=== PATIENT | male | born 1975 | race Caucasian/White ===

== ENCOUNTER 2016-09-18 08:00 | Outpatient (CLI) | payer OTHER | END 2016-09-18 08:01 | disposition home or self-care (01) | DX: N20.0 Calculus of kidney (principal) ==

== ENCOUNTER 2016-11-16 13:38 | Outpatient (CLI) | payer OTHER | END 2016-11-16 13:39 | disposition home or self-care (01) | DX: M25.531 Pain in right wrist (principal) ==

== ENCOUNTER 2017-07-27 09:56 | Outpatient (CLI) | payer OTHER ==
[2017-07-27 17:41] LABS: BASOPHILS % (AUTO) 0.5 %; EOSINOPHILS # (AUTO) 0.1 10^3/uL (0.0-0.7); EOSINOPHILS % (AUTO) 1.6 %; HCT - HEMATOCRIT 44.4 % (42.0-52.0); HGB - HEMOGLOBIN 14.9 g/dL (14.0-18.0); LYMPHOCYTES # (AUTO) 1.8 10^3/uL (1.5-3.5); LYMPHOCYTES % (AUTO) 27.7 %; MEAN CORPUSCULAR HEMOGLOBIN 30.4 pg (27.0-31.0); MEAN CORPUSCULAR HGB CONC 33.5 g/dL (32.0-36.0); MEAN CORPUSCULAR VOLUME 90.7 fL (80.0-94.0); MEAN PLATELET VOLUME 7.9 fL (7.4-11.4); MONOCYTES # (AUTO) 0.6 10^3/uL (0.0-1.0); MONOCYTES % (AUTO) 8.8 %; NEUTROPHILS # (AUTO) 4.1 10^3/uL (1.5-6.6); NEUTROPHILS % (AUTO) 61.4 %; RED CELL DISTRIBUTION WIDTH 12.6 % (12.0-15.0); UNCORRECTED WHITE BLOOD COUNT 6.6 x10^3/uL; WHITE BLOOD COUNT 6.6 x10^3/uL (4.8-10.8)
[2017-07-27 17:56] LABS: ALBUMIN/GLOBULIN RATIO 1.2 (1.0-2.2); BILIRUBIN,TOTAL 0.6 mg/dL (0.2-1.0); BUN - BLOOD UREA NITROGEN 15 mg/dL (6-20); CALCIUM 9.8 mg/dL (8.5-10.3); CARBON DIOXIDE - CO2 25 mmol/L (21-32); CHLORIDE 101 mmol/L (101-111); CREATININE 0.7 mg/dL (0.6-1.2); GFR - MDRD 124 (>89); GLUCOSE 94 mg/dL (70-100); POTASSIUM 4.2 mmol/L (3.5-5.0); SODIUM 135 mmol/L (135-145)
== END 2017-07-27 09:57 | disposition home or self-care (01) ==
LOC: LAB.F 09:56
PROVIDERS: ATTEND Physician Assistant Medical
DX: Z00.00 Encounter for general adult medical examination without abnormal findings (principal); E55.9 Vitamin D deficiency, unspecified
CPT/HCPCS: 36415; 80053; 82306; 84443; 85025

== ENCOUNTER 2017-11-27 08:59 | Outpatient (CLI) | payer OTHER ==
[2017-11-27 17:45] LABS: CHOL/HDL RATIO 6.1 (<5.0); CHOLESTEROL 289 mg/dL; HDL CHOLESTEROL 47 mg/dL; LDL CHOLESTEROL,CALCULATED 200 mg/dL; LDL/HDL RATIO 4.3 (<3.6); VLDL CHOLESTEROL 42 mg/dL
== END 2017-11-27 09:00 | disposition home or self-care (01) ==
LOC: LAB.F 08:59
PROVIDERS: ATTEND Physician Assistant Medical
DX: Z00.00 Encounter for general adult medical examination without abnormal findings (principal); Z13.89 Encounter for screening for other disorder; E55.9 Vitamin D deficiency, unspecified
CPT/HCPCS: 36415; 80061; 82306; 83721

== ENCOUNTER 2019-04-15 15:44 | Inpatient (IN) | payer OTHER ==
[~2019-04-15 15:44] MED LIST: GLYCOPYRROLATE 1 MG/5 ML VIAL IVP ONE; LIDOCAINE-MPF 2% 5 ML VIAL IM ONE; MIDAZOLAM 2 MG/2 ML VIAL IVP ONE; ONDANSETRON 4 MG/2 ML VIAL IVP ONE; PROPOFOL 200 MG/20 ML VIAL IVP ONE; ROCURONIUM 50 MG/5 ML VIAL IVP ONE; fentaNYL 100 MCG/2 ML VIAL IVP ONE
--- NOTE | 2019-04-15 15:59 | ED Physician Documentation ---
History of Present Illness - Stated complaint Stated Complaint: TOOTH PX - Chief complaint Chief Complaint: Heent - Additonal information Additional information: This is a 43-year-old male with a history of hypertension, hyperlipidemia who pr esents with left neck swelling. Patient developed an infected back left molar, he then was started on penicillin last Sunday. He had the tooth removed at the dentist yesterday and then was started on clindamycin yesterday. Overnight he began having some increased swelling of his face, which has progressed today. Now he is having trouble swallowing. He has been spitting his saliva. He denies difficulty breathing at this time. He denies fever, but he feels that he has moderate pain and pressure over his neck extending inferiorly in his neck. Review of Systems Constitutional: reports: Chills Eyes: denies: Loss of vision Throat: reports: Dental pain / toothache, Sore throat Cardiac: denies: Chest pain / pressure Respiratory: denies: Dyspnea GI: denies: Abdominal Pain : denies: Dysuria Skin: reports: Other (erythema of the neck) Musculoskeletal: reports: Neck pain Neurologic: denies: Generalized weakness Immunocompromised: denies: Immunocompromised PD PAST MEDICAL HISTORY - Past Surgical History Past Surgical History: Yes - Present Medications Home Medications: Ambulatory Orders Medication Instructions Recorded Confirmed RX: Lisinopril 10 mg PO DAILY 04/15/19 04/15/19 - Allergies Allergies/Adverse Reactions: Allergies Allergy/AdvReac Type Severity Reaction Status Date / Time levofloxacin Allergy Itching Verified 04/15/19 15:52 - Social History Does the pt smoke?: No Smoking Status: Never smoker Does the pt drink ETOH?: No Does the pt have substance abuse?: No - Immunizations Immunizations are current?: Yes PD ED PE NORMAL - Vitals Vital signs reviewed: Yes - General General: Alert and oriented X 3, Other (Obvious swelling of the Left mandibular region, patient appears somewhat uncomfortable) - HEENT HEENT: Other (Patient has moderate trismus, is able to open his mouth wide enough for me to see his back molar where he he had a tooth removed on the bottom left, there is no active purulent drainage from this region. He is induration and erythema and edema of his posterior mandibular region which extends inferiorly to the lateral submental area and also superiorly to the angle of the mandible. There are no open draining lesions visible. The region is diffusely tender. Patient has difficulty swallowing, he spit some of his secretions.) - Neck Neck: Supple, no meningeal sign - Cardiac Cardiac: Other (Tachycardiuc) - Respiratory Respiratory: Clear bilaterally - Abdomen Abdomen: Soft, Non tender, Non distended - Extremities Extremities: No deformity - Neuro Neuro: Alert and oriented X 3, bread icer 2-12 intact, No motor deficit, Other - Psych Psych: Normal mood, Normal affect Results - Vitals Vitals: Vital Signs - 24 hr 04/15/19 04/15/19 04/15/19 15:48 17:42 18:00 Temperature 36.8 C Heart Rate 119 H 109 H 114 H Respiratory 18 17 15 Rate Blood Pressure 141/85 H 137/73 H 128/74 O2 Saturation 98 96 97 04/15/19 04/15/19 04/15/19 18:22 18:52 19:31 Temperature Heart Rate 120 H 114 H 106 H Respiratory 18 16 19 Rate Blood Pressure 121/82 H 146/81 H 140/81 H O2 Saturation 98 98 99 Oxygen O2 Source Room air - Labs Labs: Laboratory Tests 04/15/19 04/15/19 04/15/19 16:23 16:23 16:23 WBC 15.9 H RBC 4.58 L Hgb 14.3 Hct 42.3 MCV 92.4 MCH 31.2 H MCHC 33.8 RDW 11.9 L Plt Count 350 MPV 9.3 Neut # (Auto) 13.7 H Lymph # (Auto) 0.8 L [place] # (Auto) 1.2 H Eos # (Auto) 0.0 Baso # (Auto) 0.0 Absolute Nucleated RBC 0.00 Nucleated RBC % 0.0 PT 15.1 H INR 1.3 H Sodium 135 Potassium 4.4 Chloride 95 L Carbon Dioxide 24 Anion Gap 16.0 H BUN 10 Creatinine 0.7 Estimated GFR (MDRD) 123 Glucose 110 H Lactic Acid Calcium 9.7 Total Bilirubin 0.9 AST 23 ALT 17 Alkaline Phosphatase 71 Total Protein 9.3 H Albumin 4.1 Globulin 5.2 H Albumin/Globulin Ratio 0.8 L Lipase 20 L 04/15/19 16:28 WBC RBC Hgb Hct MCV MCH MCHC RDW Plt Count MPV Neut # (Auto) Lymph # (Auto) [place] # (Auto) Eos # (Auto) Baso # (Auto) Absolute Nucleated RBC Nucleated RBC % PT INR Sodium Potassium Chloride Carbon Dioxide Anion Gap BUN Creatinine Estimated GFR (MDRD) Glucose Lactic Acid 0.7 Calcium Total Bilirubin AST ALT Alkaline Phosphatase Total Protein Albumin Globulin Albumin/Globulin Ratio Lipase - Rads (name of study) CT neck soft Radiology: Other (Abscess in the mandibular region as well as infection extending inferiorly, appears to be early Nehemias's angina) PD MEDICAL DECISION MAKING - ED course Complexity details: considered differential (Abscess, cellulitis, Nehemias's angina, Deep space infection, sepsis, respiratory compromise) ED course: This is a 43-year-old male presenting with swelling of the left side of his face/neck after a dental extraction yesterday. On arrival he is tachycardic, And uncomfortable appearing. He has some trismus, however he is breathing with out signs of upper airway Obstruction. He is spitting his saliva and does not appear to be managing his secretions very well. IV was inserted, labs drawn, patient placed on a monitor. Fluid bolus given. Blood cultures were drawn and patient was started on Zosyn and vancomycin. He was given 20 mg of dexamethasone IV. CT scan of the neck with contrast was obtained which shows a approximately 2 x 2 x 1.2 cm abscess of the left mandibular ramus, with extensive extension of cellulitis and soft tissue infection concerning for early Nehemias's angina. Patient was given morphine for pain control. Dr. Vargas of [facility] Was contacted, reviewed the CT, and came to bedside probably to evaluate patient. After discussion with the patient, patient was taken to the OR and admitted to the ICU afterwards for continued monitoring and antibiotic treatment. While in the ED he had no acute events, he continued to have tachycardia but his blood pressure was stable. Departure - Departure Disposition: [facility] DC/Xfer Clinical Impression: Mandibular abscess, Nehemias's angina Sepsis Qualifiers: Sepsis type: sepsis due to unspecified organism Sepsis acute organ dysfunction status: without acute organ dysfunction Qualified Code(s): A41.9 - Sepsis, unspecified organism Discharge Date/Time: 04/15/19 21:49
[2019-04-15] MEDS ORDERED: VANCOMYCIN INJ 2.5 GM in SODIUM CHLORIDE 0.9% 500 ML IV STA (16:10)
[2019-04-15] MEDS ORDERED: PIPERACILLIN/TAZOBACTAM 4.5 GM in SODIUM CHLORIDE 0.9% MINIBAG 100 ML IV STA (16:13)
[2019-04-15] MEDS ORDERED: SODIUM CHLORIDE 0.9% 1,000 ML IV ONE (16:15)
[2019-04-15 16:35] LABS: BASOPHILS % (AUTO) 0.3 %; EOSINOPHILS % (AUTO) 0.1 %; HGB - HEMOGLOBIN 14.3 g/dL (14.0-18.0); LYMPHOCYTES # (AUTO) 0.8 10^3/uL (1.5-3.5); LYMPHOCYTES % (AUTO) 5.2 %; MEAN CORPUSCULAR HEMOGLOBIN 31.2 pg (27.0-31.0); MEAN CORPUSCULAR HGB CONC 33.8 g/dL (32.0-36.0); MEAN CORPUSCULAR VOLUME 92.4 fL (80.0-94.0); MEAN PLATELET VOLUME 9.3 fL (7.4-11.4); MONOCYTES # (AUTO) 1.2 10^3/uL (0.0-1.0); MONOCYTES % (AUTO) 7.4 %; NEUTROPHILS # (AUTO) 13.7 10^3/uL (1.5-6.6); NEUTROPHILS % (AUTO) 86.2 %; PLT - PLATELET COUNT 350 10^3/uL (130-450); RED BLOOD COUNT 4.58 10^6/uL (4.70-6.10); RED CELL DISTRIBUTION WIDTH 11.9 % (12.0-15.0); WHITE BLOOD COUNT 15.9 x10^3/uL (4.8-10.8)
[2019-04-15 16:39] LABS: INR 1.3 (0.8-1.2); PT - PROTHROMBIN TIME 15.1 secs (9.9-12.6)
[2019-04-15] MEDS ORDERED: IOVERSOL 320 100 ML VIAL IVP ONE ×2 (16:40→17:14)
[2019-04-15 16:50] LABS: ALBUMIN 4.1 g/dL (3.2-5.5); ALBUMIN/GLOBULIN RATIO 0.8 (1.0-2.2); BILIRUBIN,TOTAL 0.9 mg/dL (0.2-1.0); CALCIUM 9.7 mg/dL (8.5-10.3); CREATININE 0.7 mg/dL (0.6-1.2); TOTAL PROTEIN 9.3 g/dL (6.7-8.2)
[2019-04-15] MEDS ORDERED: MORPHINE 2 MG/ML CARPUJECT IVP STA (17:15)
[2019-04-15] MEDS ORDERED: ONDANSETRON 4 MG/2 ML VIAL IVP STA (17:15)
[2019-04-15] MEDS ORDERED: DEXAMETHASONE 10 MG/ML VIAL IVP STA (17:27)
[2019-04-15] MEDS ORDERED: SODIUM CHLORIDE 0.9% 250 ML IV ONE (17:45)
[2019-04-15] MEDS ORDERED: VANCOMYCIN 1 GM VIAL ONE (17:45)
--- NOTE | 2019-04-15 17:57 | CT Report ---
Reason: Neck swelling after tooth removal Procedure Date: 04/15/2019 Accession Number: [id number] / [id number] Procedure: CT - SOFT TISSUE NECK W CPT Code: FULL RESULT: EXAM: CT SOFT TISSUE NECK WITH CONTRAST. EXAM DATE: 04/15/2019 05:13 PM. HISTORY: 43-year-old with recent tooth removal presenting with left neck swelling. Evaluate for neck pathology. COMPARISONS: None. TECHNIQUE: Routine soft tissue neck CT protocol. Reconstructions: Coronal and sagittal. IV contrast: 80 cc Optiray 320. In accordance with CT protocol optimization, one or more of the following dose reduction techniques were utilized for this exam: automated exposure control, adjustment of mA and/or KV based on patient size, or use of iterative reconstructive technique. FINDINGS: Dental amalgam beam hardening artifact technically limits evaluation of the oral cavity, oropharynx, and surrounding soft tissues. Visualized Intracranial Contents: Unremarkable. Orbits: Symmetric and unremarkable. Sinuses: Tiny right maxillary mucosal retention cyst versus polyp. Mastoid air cells and middle ear cavities appear clear. Oral cavity: There is edema and soft tissue stranding seen within the left floor of mouth. There is a rim-enhancing fluid collection seen along the lingual aspect of the left mandibular ramus that approximately measures 21 x 12 x 24 mm (CC by TR by AP). The rim-enhancing fluid collection appears to be associated with a empty socket of left mandibular molar. The right floor of mouth and muscles of the tongue appear normal. Pharynx: The mucosal and parapharyngeal spaces of the nasopharynx appeared normal. The tonsillar pillars of the oropharynx appeared normal. There is soft tissue stranding and edema seen within the parapharyngeal soft tissues of the left oropharynx. The epiglottis appears normal. There is mild thickening and enhancement of the left aryepiglottic fold with effacement of the left piriform sinus. Retropharyngeal soft tissues appear normal. The airway is patent. Larynx: Incidentally seen is a small right anterior laryngocele (series 3, image 99). Vocal cords are symmetric. The visualized trachea is unremarkable. Parotid and Submandibular Glands: Bilateral parotid glands appear normal. There is enlargement and heterogenous enhancement of the left submandibular gland. Lymph Nodes: There are small subcentimeter cervical lymph nodes seen greater on the left. Sample lymph nodes include: 1. Left level 2A lymph node measuring up to 11 mm in short axis dimension (series 3, image 72). Soft tissues: There is moderate volume soft tissue stranding and edema seen within the left submandibular space extending into the left tip printer space, left buccal space, and left lateral neck. There is thickening and questionable heterogenous enhancement of the left masseter muscle and left pterygoid muscles concerning for myositis. No definite mass lesion seen. Vascular Structures: Unremarkable. Thyroid Gland: Normal. Lung: The visualized lung apices are clear. Bones: No evidence of acute fracture or malalignment. There are mild degenerative changes. Other: None. IMPRESSION: 1. Dental amalgam beam hardening artifact technically limits evaluation of the oral cavity, oropharynx, and surrounding soft tissues. 2. There is a rim-enhancing fluid collection seen along the lingual aspect of the left mandibular ramus that approximately measures 21 x 12 x 24 mm (cc by TR by AP) concerning for immature abscess formation. The rim-enhancing fluid collection appears to be associated with a empty socket of last left mandibular molar. 3. CT findings concerning for moderate cellulitis with inflammation extending into the left floor of mouth, left submandibular space, parapharyngeal soft tissues of the left oropharynx, left tip printer space, left buccal space, and left lateral neck. There are CT findings concerning for myositis of the left masseter muscle and left pterygoid muscles. No additional rim-enhancing fluid collection seen. Inflammation of the left floor of mouth is concerning for early Ludwigs angina. 4. Mild thickening and enhancement of the left aryepiglottic fold with effacement of the left piriform sinus concerning for potential left-sided supraglottitis. RADIA The call report notification system was initiated by Dr. Berto Stark at 05:36 PM on 04/15/2019. The above call report findings were discussed with Jose Jamison by Dr. Berto Stark at 05:39 PM on 04/15/2019.
[2019-04-15] MEDS ORDERED: VANCOMYCIN INJ 1 GM, VANCOMYCIN INJ 250 MG in SODIUM CHLORIDE 0.9% 250 ML IV SCH (18:00)
[2019-04-15] MEDS ORDERED: VANCOMYCIN INJ 2.5 GM in SODIUM CHLORIDE 0.9% 500 ML IV ONE (18:00)
--- NOTE | 2019-04-15 19:28 | CONSULTATION NOTE ---
Referring Provider Name of Referring Provider:: Jose Jamison Consult Date: 04/15/19 Chief Complaint - Chief Complaint Chief Complaint: Facial pain and swelling History of Present Illness - Admitted From Admitted From:: ER - History Obtained From Records Reviewed: Yes History obtained from: Patient - History of Present Illness HPI Comment/Other: Shaquille is a 43 yo M who came in for left neck swelling, pain and difficulty swallowing. A week ago he began having swelling of the left neck related to tooth #18. The swelling gradually increased, even though he was on amoxicillin and then clindamycin. He had the tooth removed by Dr. Salmeron yesterday but he has continued to swell. He endorses severe difficulty swallowing and globus, as well as trismus. He denies any difficulty breathing. Denies fever, chills, nausea, and vomitting. A CT soft tissue neck w/ contrast was taken, demonstrating a perimandibular abscess of the left tunnel kiln repairer space, and [facility]FS was consulted for evaluation and management of the patient. History - Past Medical History Cardiovascular: reports: Hypertension - Past Surgical History HEENT: reports: Other (Craniosynostosis surgery at 6 months) - Family & Social History Living arrangement: At home Living Situation: With spouse/s.o. - Substance History Use: Uses substance without health or social issues: NONE - POLST POLST Status: Full Code Meds/Allgy - Home Medications Home Medications: Ambulatory Orders Medication Instructions Recorded Confirmed Lisinopril 10 mg PO DAILY 04/15/19 04/15/19 - Allergies Allergies/Adverse Reactions: Allergies Allergy/AdvReac Type Severity Reaction Status Date / Time levofloxacin Allergy Itching Verified 04/15/19 15:52 Review of Systems - Constitutional Constitutional: reports: Other (A 14 point ROS was completed and found to be negative except as noted above in HPI) Exam - Vital Signs Reviewed Vital Signs: Yes Vital Signs: Vital Signs x48h Temp Pulse Resp BP Pulse Ox 04/15/19 18:52 114 H 16 146/81 H 98 04/15/19 18:22 120 H 18 121/82 H 98 04/15/19 18:00 114 H 15 128/74 97 04/15/19 17:42 109 H 17 137/73 H 96 04/15/19 15:48 36.8 C 119 H 18 141/85 H 98 - Physical Exam General Appearance: positive: No acute distress, Alert Eyes Bilateral: positive: PERRL, EOMI ENT: positive: Other (PHILIPPE 9mm. FOM s, nt, ne. Uvula could not be examined 2/2 trismus. Occlusion stable and repeatable. Recent extraction site #18 difficult to exam, but no bleeding or drainage. Significant intraoral swelling and facial swelling of the left buccal space and left submandibular space, beginning to cross the midline to the right side. The swelling is indurated.) Neck: positive: Other (As above, cellulitis and swelling of the left submandibular space extending inferiorly to the thyroid cartilage) Respiratory: positive: Chest non-tender, No respiratory distress Cardiovascular: positive: Regular rate & rhythm Peripheral Pulses: positive: 2+ Abdomen: positive: Non-tender, No distention Skin: positive: Other (Clean and dry, with erythema over the swelling of the left neck) Extremities: positive: Non-tender, Full ROM Neurologic/Psychiatric: positive: Oriented x3, CN's nml (2-12) Conclusion/Plan - Diagnosis Diagnosis: left tunnel kiln repairer space abscess 2/2 necrotic tooth #18 - Plan Plan: We anticipate extraoral incision and drainage of the left tunnel kiln repairer space in the [facility]. - 20 mg decadron to decrease airway edema - IV abx while in house. Unasyn 3g q6h. If unavailable, Pen G and Metronidazole. - There is significant narrowing of the airway 2/2 mass effect and edema. The patient may stay intubated after surgery, per anesthesia. - Home on Augmentin 875mg BID - - Lab Results Fish Bones: 04/15/19 16:23 04/15/19 16:23 - Diagnostic Imaging Results Diagnostic Imaging Results: positive: Other (There is a 4 cm abscess in the left tunnel kiln repairer space with the largest loculation medial to the mandible. The a bscess does not extend into the prevertebral space. The skin over the abscess is cellulitic. The supraglottic airway is narrowed and deviated about 1cm to the R.)
[2019-04-15] MEDS ORDERED: MORPHINE 2 MG/ML CARPUJECT IVP PRN (19:34)
[2019-04-15] MEDS ORDERED: LIDOCAINE MPF 2%-EPI 1:200000 20 ML VIAL ONE (19:43)
--- NOTE | 2019-04-15 21:17 | ANESTHESIA ---
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 2/2 necrotic tooth #18 - Procedure I and D oral abscess Vital Signs: Temp Pulse Resp BP Pulse Ox 36.8 C 106 H 19 140/81 H 99 04/15/19 15:48 04/15/19 19:31 04/15/19 19:31 04/15/19 19:31 04/15/19 19:31 Height 5 ft 8 in Weight (kg) 95.254 kg Body Mass Index 31.9 - NPO Other ()atmeal at 0900, water since 1500) - Lab Results Current Lab Results: Laboratory Tests 04/15/19 16:28: Lactic Acid 0.7 04/15/19 16:23: Sodium 135, Potassium 4.4, Chloride 95 L, Carbon Dioxide 24, Anion Gap 16.0 H, BUN 10, Creatinine 0.7, Estimated GFR (MDRD) 123, Glucose 110 H, Calcium 9.7, Total Bilirubin 0.9, AST 23, ALT 17, Alkaline Phosphatase 71, Total Protein 9.3 H, Albumin 4.1, Globulin 5.2 H, Albumin/Globulin Ratio 0.8 L, Lipase 20 L 04/15/19 16:23: PT 15.1 H, INR 1.3 H 04/15/19 16:23: WBC 15.9 H, RBC 4.58 L, Hgb 14.3, Hct 42.3, MCV 92.4, MCH 31.2 H , MCHC 33.8, RDW 11.9 L, Plt Count 350, MPV 9.3, Neut # (Auto) 13.7 H, Lymph # (Auto) 0.8 L, [place] # (Auto) 1.2 H, Eos # (Auto) 0.0, Baso # (Auto) 0.0, Absolute Nucleated RBC 0.00, Nucleated RBC % 0.0 Fish Bones: 04/15/19 16:23 04/15/19 16:23 Home Medications and Allergies Home Medications: Ambulatory Orders Lisinopril 10 mg PO DAILY 04/15/19 Active Medications Lactated Ringer's (Lr) 1,000 mls @ 100 mls/hr IV .Q10H YESSICA Ampicillin Sodium/Sulbactam (Sodium 3 gm/ Sodium Chloride) 100 mls @ 200 mls/hr IV Q6H YESSICA Morphine Sulfate (Morphine (Carpuject)) 2 mg IVP Q2HR PRN PRN Reason: Pain 8 to 10 Sodium Chloride (Normal Saline Flush 0.9%) 10 ml IVP 0100,0900,1700 YESSICA Sodium Chloride (Normal Saline Flush 0.9%) 10 ml IVP PRN PRN PRN Reason: NEEDED PER PROVIDER ORDERS Lisinopril 10 mg PO DAILY 04/15/19 Allergies/Adverse Reactions: Allergies Allergy/AdvReac Type Severity Reaction Status Date / Time levofloxacin Allergy Itching Verified 04/15/19 15:52 Anes History & Medical History - Anesthetic History Anesthesia Complications: reports: No previous complications Family history of Anesthesia Complications: Denies Family history of Malignant Hyperthermia: Denies - Medical History Cardiovascular: reports: Hypertension Pulmonary: reports: None Urinary: reports: Kidney stones Neuro: reports: Other (Cranial stenosis) Musculoskeletal: reports: None Endocrine/Autoimmune: reports: None Blood Disorders: reports: None Skin: reports: None Smoking Status: Never smoker Psychosocial: reports: No issues indicated - Surgical History Eyes Ears Nose Throat (EENT): Other (Craniosynostosis surgery at 6 months) Urologic: Ureterolithotomy (stones) Neurologic: Craniotomy Exam General: Alert Dental: Other (Difficult to assess) Mouth Openin Fingerbreadth (FB) Neck Mobility: Reduced Mallampati classification: IV Thyromental Distance: 4-6 cm Respiratory: Lungs clear Cardiovascular: Regular rate Mental/Cognitive Status: Alert/Oriented X3 Cognitive Status: Within normal limits Plan Anesthesia Type: General Consent for Procedure(s) Verified and Reviewed: Yes Code Status: Attempt Resuscitation ASA classification: 3-Severe systemic disease Is this case an emergency?: Yes
[2019-04-15] MEDS ORDERED: LACTATED RINGERS 1,000 ML IV ONE ×4 (21:44→22:56)
[2019-04-15] MEDS: LACTATED RINGERS 1,000 ML IV SCH (22:59)
[2019-04-15] MEDS: PROPOFOL 1000 MG/100 ML 100 ML IV SCH (23:22)
[2019-04-15] MEDS: SODIUM CHLORIDE FLUSH 0.9% 10 ML SYRINGE IVP SCH ×2 (23:27→23:51)
[2019-04-15] MEDS ORDERED: MIDAZOLAM 2 MG/2 ML VIAL IVP ONE (23:34)
[2019-04-15] MEDS: AMPICILLIN/SULBACTAM 3 GM in SODIUM CHLORIDE 0.9% MINIBAG 100 ML IV SCH (23:59)
[2019-04-16] MEDS: fentaNYL 100 MCG/2 ML VIAL IVP PRN ×6 (00:19→14:53)
[2019-04-16] MEDS: DEXAMETHASONE 10 MG/ML VIAL IVP SCH ×3 (00:19→11:22)
[2019-04-16] MEDS: SODIUM CHLORIDE FLUSH 0.9% 10 ML SYRINGE IVP PRN ×8 (00:20→22:36)
[2019-04-16] MEDS ORDERED: MIDAZOLAM 2 MG/2 ML VIAL IVP ONE ×2 (01:57→09:20)
[2019-04-16] MEDS: MIDAZOLAM 2 MG/2 ML VIAL IVP PRN ×3 (02:08→06:51)
--- NOTE | 2019-04-16 02:20 | HISTORY & PHYSICAL EXAMINATION ---
Chief Complaint - Chief Complaint Chief Complaint: Neck swelling History of Present Illness - Admitted From Admitted From:: Home - History Obtained From Records Reviewed: Yes History obtained from: ER Physician, EMR Exam Limitations: Patient intubated - History of Present Illness HPI Comment/Other: This is a 43 year old male with a past medical history significant for hypertension who presented from home complaining of neck swelling. History is obtain from the ER physician and EMR as the patient is currently in the ICU post operatively. He reportedly had an infected tooth and was treated with antibiotics on an outpatient basis. He then had the tooth removed yesterday by his dentist and started on Clindamycin. He presented to the ER because he noticed increased swelling, difficulty swallowing and increased saliva pr oduction. In the ER, he underwent a CT of the neck which was concerning for a 2cm abscess near the left mandible with significant soft tissue edema concerning for nehemias's angina. Dr. Vargas, the oral surgeon evaluated the patient and took him to the OR for I&D of the abscess. Patient remained intubated postoperatively and so Medicine was asked to admit the patient to the ICU. History - Past Medical History Cardiovascular: reports: Hypertension Respiratory: reports: None Neuro: reports: Other (Cranial stenosis) Endocrine/Autoimmune: reports: None : reports: Kidney stones Musculoskeletal: reports: None Derm: reports: None - Past Surgical History Neuro: reports: Craniotomy HEENT: reports: Other (Craniosynostosis surgery at 6 months) - Family & Social History Family History Comment/Other: Unable to obtain family history as patient is intubated and family is not at bedside at this time. Living arrangement: At home Living Situation: With spouse/s.o. Social History Notes: Unable to obtain as the patient is intubated and family is not present at bedside at this time. - Substance History Use: Uses substance without health or social issues: NONE - POLST Patient has POLST: No Meds/Allgy - Home Medications Home Medications: Ambulatory Orders Medication Instructions Recorded Confirmed Lisinopril 10 mg PO DAILY 04/15/19 04/15/19 - Allergies Allergies/Adverse Reactions: Allergies Allergy/AdvReac Type Severity Reaction Status Date / Time levofloxacin Allergy Itching Verified 04/15/19 15:52 Review of Systems - Other Findings Other Findings: Unable to obtain ROS as patient is intubated and sedated. Prior Level of Functionality: Independent with ADL's. Exam - Vital Signs Reviewed Vital Signs: Yes Vital Signs: Vital Signs x48h Temp Pulse Pulse Resp BP BP BP 04/16/19 02:05 105 H 04/16/19 01:31 36.2 C L 88 16 105/67 04/16/19 01:00 16 104/68 04/16/19 00:30 98 16 105/63 04/16/19 00:00 115 H 16 119/72 04/15/19 23:30 139 H 26 H 161/83 H 04/15/19 23:04 122 H 04/15/19 23:00 112 H 19 139/79 H 04/15/19 22:40 36.4 C L 128 H 12 124/76 04/15/19 19:31 106 H 19 140/81 H 04/15/19 18:52 114 H 16 146/81 H 04/15/19 18:22 120 H 18 121/82 H Pulse Ox 04/16/19 02:05 04/16/19 01:31 99 04/16/19 01:00 98 04/16/19 00:30 98 04/16/19 00:00 98 04/15/19 23:30 99 04/15/19 23:04 04/15/19 23:00 99 04/15/19 22:40 100 04/15/19 19:31 99 04/15/19 18:52 98 04/15/19 18:22 98 - Physical Exam General Appearance: positive: Other (Intubated and sedated.) Eyes Bilateral: positive: Conjunctivae nml ENT: positive: Other (ET tube in place. There is prominent left neck swelling noted primarily in the submandibular space.) Neck: positive: Other ([place] drains in place.) Respiratory: positive: No respiratory distress, Other (Intubated.). negative: Wheezes, Rales Cardiovascular: positive: No murmur, Tachycardia. negative: Bradycardia, Systolic murmur Abdomen: positive: Non-tender, No distention. negative: Tenderness, Abnml bowel sounds Skin: positive: Color nml, No rash, Warm, Dry Extremities: positive: No pedal edema. negative: Pedal edema Neurologic/Psychiatric: positive: Other (Sedated. Does move all four extremities at times.) Sepsis Event Note (H) - Evaluation Current Stage of Sepsis: Sepsis Possible source of Sepsis: positive: Skin/soft tissue - Sepsis Criteria Sepsis Criteria: Recorded Heart Rate greater than 90 bpm, WBC count greater than 10% bands Conclusion/Plan - Problem List (1) Sepsis Conclusion/Plan: Secondary to mandibular abscess and Nehemias's angina. Presented with tachycardia and leukocytosis. Source evident on CT of the neck. - Unasyn IV - Follow up blood cultures (2) Mandibular abscess Conclusion/Plan: Secondary to infected tooth. CT of the neck revealed 2cm abscess near the left mandible. He is s/p I&D with Dr. Vargas, oral surgeon. [place] drains in place. - Unasyn IV - Decadron 8gm q6h - Appreciate Oral Surgery recommendations (3) Nehemias's angina Conclusion/Plan: Evident on CT of the neck. He has no MRSA risk factors. - Unasyn IV - Decadron IV (4) Respiratory failure requiring intubation Conclusion/Plan: Secondary to narrowing of the airway due to edema. Remains intubated postoperatively with minimal vent settings. - Propofol and Fentanyl for sedation - Decadron 8gm every 6 hours - Check for daily cuff leak prior to extubation (5) Hypertension Conclusion/Plan: On Lisinopril at home. Currently normotensive. - Hold home lisinopril - Lab Results Lab results reviewed: Yes Fish Bones: 04/15/19 16:23 04/15/19 16:23 - Diagnostic Imaging Results Diagnostic Imaging Results: positive: Final report reviewed Core Measures - Anticipated LOS I expect patient to be DC'd or transferred within 96 hours.: Yes - Issues Hospital Issues and Management Plan: Mandibular abscess and Nehemias's angina. Required I&D and will now require IV antibiotics. - DVT/VTE - Prophylaxis VTE/DVT Device ordered at admit?: Yes VTE/DVT Prophylaxis med ordered at admit?: Yes
[2019-04-16] MEDS: PROPOFOL 1000 MG/100 ML 100 ML IV SCH ×5 (02:21→14:04)
--- NOTE | 2019-04-16 02:21 | XRAY Report ---
Reason: Tube placement Procedure Date: 04/16/2019 Accession Number: [id number] / [id number] Procedure: XR - Chest 1 View X-Ray CPT Code: 41488 FULL RESULT: EXAM: CHEST RADIOGRAPHY EXAM DATE: 04/16/2019 02:08 AM. CLINICAL HISTORY: Tube placement. COMPARISON: None. TECHNIQUE: 1 view. FINDINGS: Lungs/Pleura: Minimal left basilar atelectasis. No effusion or pneumothorax. Mediastinum: Within exam limitations, the cardiomediastinal contour is normal. Other: Endotracheal tube terminates approximately 8 cm above the kristian. IMPRESSION: Endotracheal tube terminating approximately 8 cm above the kristian. Minimal left basilar atelectasis. RADIA
--- NOTE | 2019-04-16 04:22 | OPERATIVE REPORT ---
DATE OF SERVICE: 04/15/2019 Physician: Mario Vargas DDS PREOPERATIVE DIAGNOSIS: Left butcher space abscess involving the pterygoid space, the buccal space, the submandibular space and beginning to infringe on the lateral pharyngeal space. POSTOPERATIVE DIAGNOSIS: Left butcher space abscess involving the pterygoid space, the buccal space, the submandibular space and beginning to infringe on the lateral pharyngeal space. PROCEDURE PERFORMED: Extraoral incision and drainage of the left buccal, submandibular, sublingual, pterygoid and lateral pharyngeal spaces. PRIMARY SURGEON: Mario Vargas DDS ANESTHESIA TYPE: General anesthesia via oral endotracheal intubation. HIGH SCHOOL TEACHER: Jeronimo DRAINS, PACKS, CATHETERS: Two 1/4-inch [place] drains were placed in the left neck. The anterior one goes into the submandibular space on the medial side of the mandible, and the posterior one goes onto the lateral side of the mandible, inside the masseter muscle. A Dalton catheter was also placed. COMPLICATIONS: None. SPECIMENS: Two specimens were taken from the left neck and submitted to Microbiology for Gram stain, aerobic and anaerobic culture. INDICATIONS FOR PROCEDURE: Patient is a 43-year-old male who came in with severe trismus and left neck swelling. A CT was taken and he was found to have an abscess involving the left butcher space and lateral pharyngeal space. It was decided that incision and drainage of these spaces was necessary. The risks, benefits, and alternatives of this plan were discussed with patient including pain, swelling, bleeding, infection, damage to adjacent teeth, nerve damage, scarring, poor cosmesis facial paralysis, worsening of the abscess, need for prolonged intubation, need for tracheotomy. Adequate time was given to answer all questions, and informed consent was obtained. DESCRIPTION OF PROCEDURE: The patient was brought to the main operating room. He was placed in a supine position on the operating table with the head of the bed elevated. He had a very edematous airway, and there was concern for a possible need for a tracheotomy or an awake fiberoptic intubation. With 2 anesthetists present, he was sedated with propofol only, and then the airway was secured using a GlideScope, with only 1 attempt. The patient's mouth opening was still very poor. It should also be noted that the patient, prior to falling asleep, reported that he had drained a significant amount of purulence into his mouth while he was en route to the OR and while he was still in the ER. Now, with the patient sedated, the eyes were taped. All pressure points were padded and checked. The patient was prepped and draped in the standard sterile fashion for an extraoral surgical procedure. Local anesthesia was achieved with 2% lidocaine with epinephrine x4 mL. A formal timeout was executed. Attention was directed to the left neck. First a throat pack was placed comprised of one Ray-Deandra. Then a 2 cm incision was made in the skin under the left submandibular space, making sure to stay 2 finger widths below the inferior border of the mandible. After incising sharply through the skin, blunt dissection was carried out from the level of the platysma, down to the mandible. We dissected laterally. Dissection lateral to the mandible was performed initially, and a mild amount of purulence was encountered. This was cultured. Dissection medial to the mandible was then performed, and another mild amount of purulence was encountered, and this was also cultured. The medial aspect of the mandibular ramus and body were then bluntly dissected using a curved Leisa, taking care to avoid the inferior alveolar nerve, artery and vein bundle. The lateral aspect of the mandibular ramus was also bluntly dissected, and multiple loculations in the site of the masseter muscle were dissected. The curved Leisa was introduced posteriorly along the medial aspect of the ramus of the mandible, entering the lateral pharyngeal space. No purulence in this area was encountered. The entire surgical site was irrigated with copious amounts of sterile saline, using a red rubber catheter to introduce the saline deep into the abscess cavities. After this was completed, the Kirsty drains were placed and sutured into place. The patient's face was then cleansed. The throat pack was removed. The airway was left in place because of the patient's airway edema. The neck wound was dressed, and this marked the end of the case. The patient was transferred, intubated and sedated to the ICU. At the time of transfer of care to the ICU nursing staff, the patient was stable. TD: 04/15/2019 23:14 RADHA
[2019-04-16 05:08] LABS: BASOPHILS % (AUTO) 0.1 %; HGB - HEMOGLOBIN 10.5 g/dL (14.0-18.0); LYMPHOCYTES # (AUTO) 0.5 10^3/uL (1.5-3.5); LYMPHOCYTES % (AUTO) 4.3 %; MEAN CORPUSCULAR HGB CONC 34.4 g/dL (32.0-36.0); MEAN PLATELET VOLUME 9.6 fL (7.4-11.4); MONOCYTES # (AUTO) 0.3 10^3/uL (0.0-1.0); MONOCYTES % (AUTO) 2.3 %; NEUTROPHILS # (AUTO) 11.1 10^3/uL (1.5-6.6); NEUTROPHILS % (AUTO) 92.6 %; PLT - PLATELET COUNT 268 10^3/uL (130-450); RED BLOOD COUNT 3.28 10^6/uL (4.70-6.10); RED CELL DISTRIBUTION WIDTH 11.7 % (12.0-15.0)
--- NOTE | 2019-04-16 05:23 | XRAY Report ---
Reason: Post ET tube advancement Procedure Date: 04/16/2019 Accession Number: [id number] / [id number] Procedure: XR - Chest 1 View X-Ray CPT Code: 66884 FULL RESULT: EXAM: CHEST RADIOGRAPHY EXAM DATE: 04/16/2019 05:08 AM. CLINICAL HISTORY: Post ET tube advancement. COMPARISON: CHEST 1 VIEW 04/16/2019 1:53 AM. TECHNIQUE: 1 view. FINDINGS: Lungs/Pleura: No focal opacities evident. No pleural effusion. No pneumothorax. Mediastinum: Within exam limitations, the cardiomediastinal contour is normal. Other: The endotracheal tube terminates 5 cm above the kristian. IMPRESSION: Endotracheal tube terminating 5 cm above the kristian. RADIA
[2019-04-16] MEDS: AMPICILLIN/SULBACTAM 3 GM in SODIUM CHLORIDE 0.9% MINIBAG 100 ML IV SCH ×4 (05:56→23:58)
[2019-04-16 06:01] LABS: CALCIUM 8.3 mg/dL (8.5-10.3); CREATININE 0.6 mg/dL (0.6-1.2); PHOSPHORUS 2.9 mg/dL (2.5-4.6)
[2019-04-16] MEDS: LACTATED RINGERS 1,000 ML IV SCH ×2 (07:48→17:57)
[2019-04-16] MEDS ORDERED: ENOXAPARIN 40 MG/0.4 ML SYRINGE SUBQ SCH (09:00)
[2019-04-16] MEDS: CHLORHEXIDINE GLUCONATE 15 ML UDC PO SCH ×2 (09:48→22:33)
[2019-04-16 10:22] LABS: VBG BASE EXCESS -0.4 mmol/L (-2 - +2); VBG PCO2 47.2 mmHg (41-51); VBG PH 7.352 (7.31-7.41); VBG PO2 23.2 mmHg (25-47)
--- NOTE | 2019-04-16 13:59 | PROVIDER PROGRESS NOTE ---
Subjective - Prog Note Date Prog Note Date: 04/16/19 Prog Note Time: 13:57 - Subjective Subjective: Intubated and sedated in ICU. Moving arms No events overnight afebrile Good UOP Some issues with restlessness, in soft restraints. Objective - Vital Signs/Intake & Output Vital Signs: Vital Signs x48h Temp Pulse Pulse Resp BP Pulse Ox 04/16/19 13:05 91 04/16/19 13:00 95 16 115/75 94 04/16/19 12:15 87 14 95/51 L 04/16/19 12:00 36.4 C L 88 12 99 04/16/19 11:00 74 16 124/63 98 04/16/19 10:30 68 19 111/64 97 04/16/19 10:11 79 04/16/19 10:00 81 16 113/66 97 04/16/19 09:30 97 16 126/100 H 97 04/16/19 09:00 75 16 102/62 98 04/16/19 08:30 75 16 103/63 98 04/16/19 08:03 80 04/16/19 08:00 36.1 C L 78 16 107/64 99 04/16/19 07:30 83 16 102/61 98 04/16/19 07:00 36.2 C L 95 16 104/61 98 04/16/19 06:30 36.2 C L 83 16 118/74 100 04/16/19 06:18 80 04/16/19 06:00 82 16 101/63 99 Intake & Output: Intake & Output 04/13/19 04/14/19 04/15/19 04/16/19 23:59 23:59 23:59 23:59 Intake Total 1979.440 3681.024 Output Total 2160 Balance 1606.954 -529.976 - Objective ENT: positive: Other (No purulent drainage from the mouth. Significant postop edema, as expected. Mild purulent drainage from the two ike drains in the R neck.) - Lab Results Fish Bones: 04/16/19 04:35 04/16/19 04:35 Other Labs: Lab Results x24hrs 04/16/19 04/16/19 04/16/19 Range/Units 12:00 09:25 06:17 WBC (4.8-10.8) x10^3/uL RBC (4.70-6.10) 10^6/uL Hgb (14.0-18.0) g/dL Hct (42.0-52.0) % MCV (80.0-94.0) fL MCH (27.0-31.0) pg MCHC (32.0-36.0) g/dL RDW (12.0-15.0) % Plt Count (130-450) 10^3/uL MPV (7.4-11.4) fL Neut # (Auto) (1.5-6.6) 10^3/uL Lymph # (Auto) (1.5-3.5) 10^3/uL [place] # (Auto) (0.0-1.0) 10^3/uL Eos # (Auto) (0.0-0.7) 10^3/uL Baso # (Auto) (0.0-0.1) 10^3/uL Absolute Nucleated RBC x10^3/uL Nucleated RBC % /100WBC PT (9.9-12.6) secs INR (0.8-1.2) VBG pH 7.352 (7.31-7.41) VBG pCO2 47.2 (41-51) mmHg VBG pO2 23.2 L (25-47) mmHg VBG HCO3 25.6 (23-28) mmol/L VBG Total CO2 27.0 (24-29) mmol/L VBG O2 Saturation 38.3 L (60-80) % VBG Base Excess -0.4 (-2 - +2) mmol/L Sodium (135-145) mmol/L Potassium (3.5-5.0) mmol/L Chloride (101-111) mmol/L Carbon Dioxide (21-32) mmol/L Anion Gap (6-13) BUN (6-20) mg/dL Creatinine (0.6-1.2) mg/dL Estimated GFR (MDRD) (>89) Glucose (70-100) mg/dL POC Whole Bld Glucose 123 H 147 H (70 - 100) mg/dL Lactic Acid (0.5-2.2) mmol/L Calcium (8.5-10.3) mg/dL Phosphorus (2.5-4.6) mg/dL Magnesium (1.7-2.8) mg/dL Total Bilirubin (0.2-1.0) mg/dL AST (10-42) IU/L ALT (10-60) IU/L Alkaline Phosphatase (42-121) IU/L Total Protein (6.7-8.2) g/dL Albumin (3.2-5.5) g/dL Globulin (2.1-4.2) g/dL Albumin/Globulin Ratio (1.0-2.2) Lipase (22-51) U/L Nasal Screen MRSA (PCR) (NEGATIVE) 04/16/19 04/16/19 04/16/19 Range/Units 04:35 04:35 00:00 WBC 12.0 H (4.8-10.8) x10^3/uL RBC 3.28 L (4.70-6.10) 10^6/uL Hgb 10.5 L (14.0-18.0) g/dL Hct 30.5 L (42.0-52.0) % MCV 93.0 (80.0-94.0) fL MCH 32.0 H (27.0-31.0) pg MCHC 34.4 (32.0-36.0) g/dL RDW 11.7 L (12.0-15.0) % Plt Count 268 (130-450) 10^3/uL MPV 9.6 (7.4-11.4) fL Neut # (Auto) 11.1 H (1.5-6.6) 10^3/uL Lymph # (Auto) 0.5 L (1.5-3.5) 10^3/uL [place] # (Auto) 0.3 (0.0-1.0) 10^3/uL Eos # (Auto) 0.0 (0.0-0.7) 10^3/uL Baso # (Auto) 0.0 (0.0-0.1) 10^3/uL Absolute Nucleated RBC 0.00 x10^3/uL Nucleated RBC % 0.0 /100WBC PT (9.9-12.6) secs INR (0.8-1.2) VBG pH (7.31-7.41) VBG pCO2 (41-51) mmHg VBG pO2 (25-47) mmHg VBG HCO3 (23-28) mmol/L VBG Total CO2 (24-29) mmol/L VBG O2 Saturation (60-80) % VBG Base Excess (-2 - +2) mmol/L Sodium 133 L (135-145) mmol/L Potassium 4.2 (3.5-5.0) mmol/L Chloride 100 L (101-111) mmol/L Carbon Dioxide 21 (21-32) mmol/L Anion Gap 12.0 (6-13) BUN 12 (6-20) mg/dL Creatinine 0.6 (0.6-1.2) mg/dL Estimated GFR (MDRD) 147 (>89) Glucose 141 H (70-100) mg/dL POC Whole Bld Glucose 164 H (70 - 100) mg/dL Lactic Acid (0.5-2.2) mmol/L Calcium 8.3 L (8.5-10.3) mg/dL Phosphorus 2.9 (2.5-4.6) mg/dL Magnesium 2.0 (1.7-2.8) mg/dL Total Bilirubin (0.2-1.0) mg/dL AST (10-42) IU/L ALT (10-60) IU/L Alkaline Phosphatase (42-121) IU/L Total Protein (6.7-8.2) g/dL Albumin (3.2-5.5) g/dL Globulin (2.1-4.2) g/dL Albumin/Globulin Ratio (1.0-2.2) Lipase (22-51) U/L Nasal Screen MRSA (PCR) (NEGATIVE) 04/15/19 04/15/19 04/15/19 Range/Units 22:50 16:28 16:23 WBC (4.8-10.8) x10^3/uL RBC (4.70-6.10) 10^6/uL Hgb (14.0-18.0) g/dL Hct (42.0-52.0) % MCV (80.0-94.0) fL MCH (27.0-31.0) pg MCHC (32.0-36.0) g/dL RDW (12.0-15.0) % Plt Count (130-450) 10^3/uL MPV (7.4-11.4) fL Neut # (Auto) (1.5-6.6) 10^3/uL Lymph # (Auto) (1.5-3.5) 10^3/uL [place] # (Auto) (0.0-1.0) 10^3/uL Eos # (Auto) (0.0-0.7) 10^3/uL Baso # (Auto) (0.0-0.1) 10^3/uL Absolute Nucleated RBC x10^3/uL Nucleated RBC % /100WBC PT (9.9-12.6) secs INR (0.8-1.2) VBG pH (7.31-7.41) VBG pCO2 (41-51) mmHg VBG pO2 (25-47) mmHg VBG HCO3 (23-28) mmol/L VBG Total CO2 (24-29) mmol/L VBG O2 Saturation (60-80) % VBG Base Excess (-2 - +2) mmol/L Sodium 135 (135-145) mmol/L Potassium 4.4 (3.5-5.0) mmol/L Chloride 95 L (101-111) mmol/L Carbon Dioxide 24 (21-32) mmol/L Anion Gap 16.0 H (6-13) BUN 10 (6-20) mg/dL Creatinine 0.7 (0.6-1.2) mg/dL Estimated GFR (MDRD) 123 (>89) Glucose 110 H (70-100) mg/dL POC Whole Bld Glucose (70 - 100) mg/dL Lactic Acid 0.7 (0.5-2.2) mmol/L Calcium 9.7 (8.5-10.3) mg/dL Phosphorus (2.5-4.6) mg/dL Magnesium (1.7-2.8) mg/dL Total Bilirubin 0.9 (0.2-1.0) mg/dL AST 23 (10-42) IU/L ALT 17 (10-60) IU/L Alkaline Phosphatase 71 (42-121) IU/L Total Protein 9.3 H (6.7-8.2) g/dL Albumin 4.1 (3.2-5.5) g/dL Globulin 5.2 H (2.1-4.2) g/dL Albumin/Globulin Ratio 0.8 L (1.0-2.2) Lipase 20 L (22-51) U/L Nasal Screen MRSA (PCR) NEGATIVE (NEGATIVE) 04/15/19 04/15/19 Range/Units 16:23 16:23 WBC 15.9 H (4.8-10.8) x10^3/uL RBC 4.58 L (4.70-6.10) 10^6/uL Hgb 14.3 (14.0-18.0) g/dL Hct 42.3 (42.0-52.0) % MCV 92.4 (80.0-94.0) fL MCH 31.2 H (27.0-31.0) pg MCHC 33.8 (32.0-36.0) g/dL RDW 11.9 L (12.0-15.0) % Plt Count 350 (130-450) 10^3/uL MPV 9.3 (7.4-11.4) fL Neut # (Auto) 13.7 H (1.5-6.6) 10^3/uL Lymph # (Auto) 0.8 L (1.5-3.5) 10^3/uL [place] # (Auto) 1.2 H (0.0-1.0) 10^3/uL Eos # (Auto) 0.0 (0.0-0.7) 10^3/uL Baso # (Auto) 0.0 (0.0-0.1) 10^3/uL Absolute Nucleated RBC 0.00 x10^3/uL Nucleated RBC % 0.0 /100WBC PT 15.1 H (9.9-12.6) secs INR 1.3 H (0.8-1.2) VBG pH (7.31-7.41) VBG pCO2 (41-51) mmHg VBG pO2 (25-47) mmHg VBG HCO3 (23-28) mmol/L VBG Total CO2 (24-29) mmol/L VBG O2 Saturation (60-80) % VBG Base Excess (-2 - +2) mmol/L Sodium (135-145) mmol/L Potassium (3.5-5.0) mmol/L Chloride (101-111) mmol/L Carbon Dioxide (21-32) mmol/L Anion Gap (6-13) BUN (6-20) mg/dL Creatinine (0.6-1.2) mg/dL Estimated GFR (MDRD) (>89) Glucose (70-100) mg/dL POC Whole Bld Glucose (70 - 100) mg/dL Lactic Acid (0.5-2.2) mmol/L Calcium (8.5-10.3) mg/dL Phosphorus (2.5-4.6) mg/dL Magnesium (1.7-2.8) mg/dL Total Bilirubin (0.2-1.0) mg/dL AST (10-42) IU/L ALT (10-60) IU/L Alkaline Phosphatase (42-121) IU/L Total Protein (6.7-8.2) g/dL Albumin (3.2-5.5) g/dL Globulin (2.1-4.2) g/dL Albumin/Globulin Ratio (1.0-2.2) Lipase (22-51) U/L Nasal Screen MRSA (PCR) (NEGATIVE) ABX Reporting Has patient been on IV antibiotics over the past 48 hours?: Yes Sepsis Event Note (H) - Evaluation Current Stage of Sepsis: Sepsis Possible source of Sepsis: positive: Skin/soft tissue - Sepsis Criteria Sepsis Criteria: Recorded Heart Rate greater than 90 bpm, WBC count greater than 10% bands Assessment/Plan - Problem List (1) Mandibular abscess Impression: POD #1 s/p I&D of R eligibility examiner sp abscess. Improving. Downtrending WBC. Afebrile. No tachycardia and good UOP, no sepsis. Mildly improved edema today. Some production from the drains. Checked cuff leak w/ RT. Good cuff leak. Can breath around the tube. OK to extubate from OMFS standpoint. If hesitant to extubate, consider placing a bougie and slowly backing out the tube over the bougie. I can be present for extubation after 5pm if requested. Anticipate one more day of inpatient status. Step down to med/surg floor after extubation. Resume full liquid diet Continue IV abx while in house. Home on Augmentin 875 BID Elevate HOB 45 degrees Start chlorhexidine mouthrinse BID Encourage ambulation. Chemical DVT prophy ok Will remove drains tomorrow prior to d/c Appreciate IM assitance. Please call w/ any questions. Mario Vargas [phone]
--- NOTE | 2019-04-16 17:58 | PROVIDER PROGRESS NOTE ---
Subjective - Prog Note Date Prog Note Date: 04/16/19 Prog Note Time: 17:56 - Subjective Pt reports feeling: Improved Subjective: He is so relieved. This morning he was feeling like he was claustrophobic and choking with the ventilator. Was driving him insane. He has now been extubated. He still has discomfort with he swallows. There is quite a bit of facial edema still on that left side and along the jawline. He said no fever. Still tachycardic at about 110. Hypertensive in the 140s up to 160s. Diastolic is 86-96. Oxygenating well on room air. Current Medications - Current Medications Current Medications: Active Medications Generic Name Dose Route Start Last Admin Trade Name Freq PRN Reason Stop Dose Admin Chlorhexidine Gluconate 15 ml 04/16/19 10:00 04/16/19 09:48 Peridex PO 15 ml BID YESSICA Administration Fentanyl 100 mcg 04/15/19 23:59 04/16/19 14:53 Fentanyl IVP 100 mcg Q2HR PRN Administration PAIN Ampicillin Sodium/Sulbactam 100 mls @ 200 mls/hr 04/15/19 23:59 04/16/19 12:08 Sodium 3 gm/ Sodium Chloride IV Infused Q6H YESSICA Infusion Sodium Chloride 10 ml 04/16/19 01:00 04/15/19 23:51 Normal Saline Flush 0.9% IVP 10 ml 0100,0900,1700 YESSICA Administration Sodium Chloride 10 ml 04/15/19 19:34 04/16/19 06:51 Normal Saline Flush 0.9% IVP 10 ml PRN PRN Administration NEEDED PER PROVIDER ORDERS Lisinopril 10 mg PO DAILY 04/15/19 Objective - Vital Signs/Intake & Output Reviewed Vital Signs: Yes Vital Signs: Vital Signs x48h Temp Pulse Pulse Resp BP Pulse Ox 04/16/19 17:00 116 H 22 160/96 H 97 04/16/19 16:00 37.2 C 110 H 19 146/100 H 95 04/16/19 15:00 90 17 110/86 H 98 04/16/19 14:03 95 04/16/19 14:00 91 12 139/86 H 97 04/16/19 13:05 91 04/16/19 13:00 95 16 115/75 94 04/16/19 12:15 87 14 95/51 L 04/16/19 12:00 36.4 C L 88 12 99 04/16/19 11:00 74 16 124/63 98 04/16/19 10:30 68 19 111/64 97 04/16/19 10:11 79 04/16/19 10:00 81 16 113/66 97 Intake & Output: Intake & Output 04/13/19 04/14/19 04/15/19 04/16/19 23:59 23:59 23:59 23:59 Intake Total 4871.145 7152.728 Output Total 2855 Balance 1606.954 -471.272 - Objective General Appearance: positive: No acute distress, Alert, Other ( Stocky middle- aged white male, alert. Bandage on face and neck) Eyes Bilateral: positive: PERRL, EOMI ENT: positive: No signs of dehydration Neck: positive: Other (left side of neck is covered in a bandage up along the jawline. Tongue is pink and moist. Some edema along the pharyngeal fold on the left side) Respiratory: positive: Chest non-tender, No respiratory distress. negative: Wheezes, Rales, Rhonchi Cardiovascular: positive: Regular rate & rhythm, Tachycardia. negative: Gallop/S4, Friction rub Abdomen: positive: Non-tender, No organomegaly, Nml bowel sounds, No distention Skin: positive: Warm, Dry Extremities: positive: No pedal edema Neurologic/Psychiatric: positive: Oriented x3, CN's nml (2-12), Motor nml - Lab Results Fish Bones: 04/16/19 04:35 04/16/19 04:35 Other Labs: Lab Results x24hrs 04/16/19 04/16/19 04/16/19 Range/Units 12:00 09:25 06:17 WBC (4.8-10.8) x10^3/uL RBC (4.70-6.10) 10^6/uL Hgb (14.0-18.0) g/dL Hct (42.0-52.0) % MCV (80.0-94.0) fL MCH (27.0-31.0) pg MCHC (32.0-36.0) g/dL RDW (12.0-15.0) % Plt Count (130-450) 10^3/uL MPV (7.4-11.4) fL Neut # (Auto) (1.5-6.6) 10^3/uL Lymph # (Auto) (1.5-3.5) 10^3/uL Door # (Auto) (0.0-1.0) 10^3/uL Eos # (Auto) (0.0-0.7) 10^3/uL Baso # (Auto) (0.0-0.1) 10^3/uL Absolute Nucleated RBC x10^3/uL Nucleated RBC % /100WBC VBG pH 7.352 (7.31-7.41) VBG pCO2 47.2 (41-51) mmHg VBG pO2 23.2 L (25-47) mmHg VBG HCO3 25.6 (23-28) mmol/L VBG Total CO2 27.0 (24-29) mmol/L VBG O2 Saturation 38.3 L (60-80) % VBG Base Excess -0.4 (-2 - +2) mmol/L Sodium (135-145) mmol/L Potassium (3.5-5.0) mmol/L Chloride (101-111) mmol/L Carbon Dioxide (21-32) mmol/L Anion Gap (6-13) BUN (6-20) mg/dL Creatinine (0.6-1.2) mg/dL Estimated GFR (MDRD) (>89) Glucose (70-100) mg/dL POC Whole Bld Glucose 123 H 147 H (70 - 100) mg/dL Calcium (8.5-10.3) mg/dL Phosphorus (2.5-4.6) mg/dL Magnesium (1.7-2.8) mg/dL Nasal Screen MRSA (PCR) (NEGATIVE) 04/16/19 04/16/19 04/16/19 Range/Units 04:35 04:35 00:00 WBC 12.0 H (4.8-10.8) x10^3/uL RBC 3.28 L (4.70-6.10) 10^6/uL Hgb 10.5 L (14.0-18.0) g/dL Hct 30.5 L (42.0-52.0) % MCV 93.0 (80.0-94.0) fL MCH 32.0 H (27.0-31.0) pg MCHC 34.4 (32.0-36.0) g/dL RDW 11.7 L (12.0-15.0) % Plt Count 268 (130-450) 10^3/uL MPV 9.6 (7.4-11.4) fL Neut # (Auto) 11.1 H (1.5-6.6) 10^3/uL Lymph # (Auto) 0.5 L (1.5-3.5) 10^3/uL Door # (Auto) 0.3 (0.0-1.0) 10^3/uL Eos # (Auto) 0.0 (0.0-0.7) 10^3/uL Baso # (Auto) 0.0 (0.0-0.1) 10^3/uL Absolute Nucleated RBC 0.00 x10^3/uL Nucleated RBC % 0.0 /100WBC VBG pH (7.31-7.41) VBG pCO2 (41-51) mmHg VBG pO2 (25-47) mmHg VBG HCO3 (23-28) mmol/L VBG Total CO2 (24-29) mmol/L VBG O2 Saturation (60-80) % VBG Base Excess (-2 - +2) mmol/L Sodium 133 L (135-145) mmol/L Potassium 4.2 (3.5-5.0) mmol/L Chloride 100 L (101-111) mmol/L Carbon Dioxide 21 (21-32) mmol/L Anion Gap 12.0 (6-13) BUN 12 (6-20) mg/dL Creatinine 0.6 (0.6-1.2) mg/dL Estimated GFR (MDRD) 147 (>89) Glucose 141 H (70-100) mg/dL POC Whole Bld Glucose 164 H (70 - 100) mg/dL Calcium 8.3 L (8.5-10.3) mg/dL Phosphorus 2.9 (2.5-4.6) mg/dL Magnesium 2.0 (1.7-2.8) mg/dL Nasal Screen MRSA (PCR) (NEGATIVE) 04/15/19 Range/Units 22:50 WBC (4.8-10.8) x10^3/uL RBC (4.70-6.10) 10^6/uL Hgb (14.0-18.0) g/dL Hct (42.0-52.0) % MCV (80.0-94.0) fL MCH (27.0-31.0) pg MCHC (32.0-36.0) g/dL RDW (12.0-15.0) % Plt Count (130-450) 10^3/uL MPV (7.4-11.4) fL Neut # (Auto) (1.5-6.6) 10^3/uL Lymph # (Auto) (1.5-3.5) 10^3/uL Door # (Auto) (0.0-1.0) 10^3/uL Eos # (Auto) (0.0-0.7) 10^3/uL Baso # (Auto) (0.0-0.1) 10^3/uL Absolute Nucleated RBC x10^3/uL Nucleated RBC % /100WBC VBG pH (7.31-7.41) VBG pCO2 (41-51) mmHg VBG pO2 (25-47) mmHg VBG HCO3 (23-28) mmol/L VBG Total CO2 (24-29) mmol/L VBG O2 Saturation (60-80) % VBG Base Excess (-2 - +2) mmol/L Sodium (135-145) mmol/L Potassium (3.5-5.0) mmol/L Chloride (101-111) mmol/L Carbon Dioxide (21-32) mmol/L Anion Gap (6-13) BUN (6-20) mg/dL Creatinine (0.6-1.2) mg/dL Estimated GFR (MDRD) (>89) Glucose (70-100) mg/dL POC Whole Bld Glucose (70 - 100) mg/dL Calcium (8.5-10.3) mg/dL Phosphorus (2.5-4.6) mg/dL Magnesium (1.7-2.8) mg/dL Nasal Screen MRSA (PCR) NEGATIVE (NEGATIVE) ABX Reporting Has patient been on IV antibiotics over the past 48 hours?: Yes Assessment/Plan - Problem List (1) Nehemias's angina Impression: postoperative day #1 for incision and debridement. Day #2 of Unasyn. Blood cultures are negative after 1 day. White cell count went from [id number],[id number],000 Plan: Continue antibiotics for 1 more day until more facial edema is gone. Change fentanyl to dilaudid IV tonight and then to po oxycodone in am. (2) Airway compromise Impression: resolvedl due to his abcess. required intubation overnight. extubated this am and doing well this afternoon. Plan: stop steroids take out of ICU status (3) Hypertension Impression: resume his lisinopril. give one dose of enalapril tonight. Qualifiers: Hypertension type: essential hypertension Qualified Code(s): I10 - Essential (primary) hypertension (4) Hyperglycemia, drug-induced Impression: now that off decadron, stop POC glucose checks and insulin.
[2019-04-16] MEDS: SODIUM CHLORIDE FLUSH 0.9% 10 ML SYRINGE IVP SCH (18:41)
[2019-04-16] MEDS: HYDROmorphone 1 MG/ML CARPUJECT IVP PRN ×2 (20:34→22:36)
[2019-04-17] MEDS: SODIUM CHLORIDE FLUSH 0.9% 10 ML SYRINGE IVP PRN
[2019-04-17] MEDS: HYDROcod/ACETAM 5/325 MG TABLET PO PRN ×3 (00:17→10:41)
[2019-04-17 05:46] LABS: BASOPHILS % (AUTO) 0.1 %; EOSINOPHILS % (AUTO) 0.1 %; HGB - HEMOGLOBIN 11.4 g/dL (14.0-18.0); LYMPHOCYTES # (AUTO) 1.5 10^3/uL (1.5-3.5); LYMPHOCYTES % (AUTO) 7.7 %; MEAN CORPUSCULAR HEMOGLOBIN 30.2 pg (27.0-31.0); MEAN CORPUSCULAR HGB CONC 32.1 g/dL (32.0-36.0); MEAN CORPUSCULAR VOLUME 94.2 fL (80.0-94.0); MEAN PLATELET VOLUME 9.3 fL (7.4-11.4); MONOCYTES # (AUTO) 1.4 10^3/uL (0.0-1.0); MONOCYTES % (AUTO) 7.5 %; PLT - PLATELET COUNT 369 10^3/uL (130-450); RED BLOOD COUNT 3.77 10^6/uL (4.70-6.10); RED CELL DISTRIBUTION WIDTH 12.1 % (12.0-15.0)
[2019-04-17 06:00] LABS: CALCIUM 8.8 mg/dL (8.5-10.3); CREATININE 0.7 mg/dL (0.6-1.2); MAGNESIUM 2.3 mg/dL (1.7-2.8); PHOSPHORUS 3.4 mg/dL (2.5-4.6)
[2019-04-17] MEDS: AMPICILLIN/SULBACTAM 3 GM in SODIUM CHLORIDE 0.9% MINIBAG 100 ML IV SCH ×2 (06:46→11:28)
[2019-04-17] MEDS: SODIUM CHLORIDE FLUSH 0.9% 10 ML SYRINGE IVP SCH ×2 (08:42)
[2019-04-17] MEDS: CHLORHEXIDINE GLUCONATE 15 ML UDC PO SCH (08:42)
--- NOTE | 2019-04-17 11:11 | Discharge Plan ---
Discharge Plan Problem Reviewed?: Yes Disposition: Home, Self Care Condition: Stable Prescriptions: Amox/Clav 500/125 [Augmentin] 1 each PO Q12H #20 tablet oxyCODONE/ACET 5/325 [Percocet 5 mg/325 mg] 2 each PO Q6H PRN #30 tablet PRN Reason: Pain Diet: Regular Activity Restrictions: No strenuous activity such as exercise, lifting >10 lbs for next week. Shower Restrictions: Yes (keep face clean and dry. May shower as usual) Driving Restrictions: Yes (no driving if used percocet ) Health Concerns: You were seen by your dentist because of pain and swelling related to a tooth. Dr. Salmeron remove the tooth on April 14. But she continued to have pain, tenderness, and swelling on that side of your face, jawline. You are starting to have problems with swallowing, and having muscle pain. You presented to the emergency room where you had a fast heart rate. But no fever and a relatively normal blood pressure. You seem to be with high blood pressure and your blood pressure was 1 41-1 46. We aim for a blood pressure less than 130 on a regular basis. The cause of your pain was an abscess that had developed in your mouth. It was extending into the jaw. Plan of Treatment: You were taken to the operating room by Dr. Mario Anderson. The abscess was drained. Because her airway was very closed off from the infection, you remained in the ICU with an airway tube in place. We finally were able to reduce the swelling enough that you were extubated on April 16. While in the ICU you received IV steroids to control some of the swelling in your neck. The steroids caused her glucose to be elevated. That has resolved. Care Goals: 1. you may return to work April 28 2. No exercise or lifting greater than 10 pounds for the next 5 to 7 days. 3. You will be sent home with a limited amount of narcotics to control your pain. If you need a refill of narcotics please ask your primary care provider or Dr. Vargas 4. From the hospital, you need to drive to Dr. Vargas office. [address], [address], [place]. [phone]. He will remove the drains in your neck 5. Dr. Vargas would like you to finish taking 10 days of Augmentin. The Augmentin and the pain pill have both been called into [facility] [place]. 6. You may have a regular diet 7. You may take a shower and a regular bath. Just keep your face clean and dry after you shower. Assessment: patient and reviewed health concerns and goals. Will follow through. No Smoking: If you smoke, Please STOP! Call for help. Follow-up with: Maureen Thurston PA-C [Primary Care Provider] -
[2019-04-17 11:51] VITALS: BP 119/75
[2019-04-17] MEDS ORDERED: POLYETHYLENE GLYCOL 3350 17 GM PACKET PO SCH (12:00)
--- NOTE | 2019-04-17 15:08 | DISCHARGE SUMMARY ---
"Discharge Summary Admit Date: 04/15/19 Discharge Date: 04/17/19 Discharging Provider: Belén Sharpe MD Primary Care Provider: KASANDRA Judd Code Status: Attempt Resuscitation Condition at Discharge: Stable Discharge Disposition: 01 Home, Self Care - DIAGNOSES Discharge Diagnoses with Status of Each Condition: 1. Sepsis : Heart rate >90, WBC >12K, source of infection abcess, resolved 2. Jany's angina, resolved 3. left cuff cutter space abscess involving the pterygoid space, the buccal space, the submandibular space and beginning to infringe on the lateral pharyngeal space, resolved 4. Airway compromise, resolved. 5. Hypertension 6. Drug-induced hyperglycemia, resolved - HPI History of Present Illness: This is a 43 year old male with a past medical history significant for hypertension who presented from home complaining of neck swelling. History is obtain from the ER physician and EMR as the patient is currently in the ICU post operatively. He reportedly had an infected tooth and was treated with antibiotics on an outpatient basis. He then had the tooth removed yesterday by his dentist and started on Clindamycin. He presented to the ER because he noticed increased swelling, difficulty swallowing and increased saliva production. In the ER, he underwent a CT of the neck which was concerning for a 2cm abscess near the left mandible with significant soft tissue edema concerning for jany's angina. Dr. Vargas, the oral surgeon evaluated the patient and took him to the OR for I&D of the abscess. Patient remained intubated postoperatively and so Medicine was asked to admit the patient to the ICU. History - Past Medical History Cardiovascular: reports: Hypertension Respiratory: reports: None Neuro: reports: Other (Cranial stenosis) Endocrine/Autoimmune: reports: None : reports: Kidney stones Musculoskeletal: reports: None Derm: reports: None - Past Surgical History Neuro: reports: Craniotomy HEENT: reports: Other (Craniosynostosis surgery at 6 months) - CONSULTS | PROCEDURES Consultations: Mario Vargas DDS Procedures: 1. extraoral incision and drainage of the left buccal, submandibular, sublingual, pterygoid and lateral pharyngeal spaces. 2. Blood cultures negative 3. . Soft tissue neck CT with contrast with edema and soft tissue stranding seen within the left floor the mouth. Rim-enhancing fluid collection seen along the lingual aspect of the left mandibular ramus that approximately measures 21 x 12 x 24 mm. Rim-enhancing fluid appears to be associated with empty socket of left mandibular molar. Soft tissue stranding and edema within the parapharyngeal soft tissues of the left oropharynx. Mild thickening and e nhancement of the left aryepiglottic fold with effacement of the left piriform sinus. Moderate volume soft tissue stranding and edema within the left submandibular space extending into the left cuff cutter space, left buccal space, and left lateral neck. Thickening and questionable heterogeneous enhancement of the left masseter muscle and left pterygoid muscle concerning for myositis. - HOSPITAL COURSE Hospital Course: The patient was transition to the ICU from the OR. Because of airway compromise due to severe edema, swelling, infection, the patient remained intubated overnight. He was kept on IV antibiotic therapy and IV Decadron to reduce swelling. Cuff leak test was done to make sure he had adequate airway the day after surgery. Anesthesia was at the bedside. He was extubated without any complication. He did develop hyperglycemia from decadron but that was stopped. Hypertension was noted and his usual lisinopril was resumed. Dr. Vargas was not able to see the patient in the hospital on the day of discharge. Asked the patient to travel to his office after discharge. Drains would be removed from the neck. Instructions were given to the patient such as no excessive exercise or lifting for the next week. He can return to work April 28. To keep his incisions clean and dry but he can shower normally.. Dr. Vargas also asked the patient be discharged on Augmentin twice daily for the next 10 days. Pain management was with Percocet 5/325 mg tablets 1 to 2 tablets every 4 hours as needed for pain, #30 prescribed. A note was given to the patient for him to present to his employer requesting no work until April 28. He was discharged in stable condition with a temperature of 36.7, pulse 103, blood pressure 119/75, respirations 20 and 98% on room air. He was ambulating in his room. Still had flushed cheeks. Bandage on the left neck covered his wound. Facial edema and neck edema had improved tremendously even from yesterday to today. Voice was normal. Speech was normal. Swallowing was normal. Lungs were clear, regular rate and rhythm, abdomen benign. - ALLERGIES Allergies/Adverse Reactions: Allergies Allergy/AdvReac Type Severity Reaction Status Date / Time levofloxacin Allergy Itching Verified 04/15/19 15:52 - MEDICATIONS Home Medications: Ambulatory Orders Medication Instructions Recorded Confirmed Lisinopril 10 mg PO DAILY 04/15/19 04/17/19 Amox/Clav 500/125 [Augmentin] 1 each PO Q12H #20 tablet 04/17/19 Clindamycin HCl [Clindamycin 300MG 300 mg PO QID MDD 4 cap/day; qty 04/17/19 04/17/19 CAP] 28 caps = 7days oxyCODONE/ACET 5/325 [Percocet 5 2 each PO Q6H PRN #30 tablet 04/17/19 mg/325 mg] - LABS Result Diagrams: 04/17/19 05:10 04/17/19 05:10 - SEPSIS Current Stage of Sepsis: Resolved Possible source of Sepsis: Skin/soft tissue Sepsis Criteria: Recorded Heart Rate greater than 90 bpm, WBC count greater than 10% bands, WBC count greater than 12,000 or less than 4000 - TIME SPENT Time Spent in Discharge (Minutes): 35"
== END 2019-04-17 14:34 | disposition home or self-care (01) | DRG 853 ==
LOC: ED 15:44 → UNDOADMIN 19:34 → ICU 19:34 → MS2 04-16 22:22 → UNDODISIN 04-17 14:34
PROVIDERS: ADMIT Internal Medicine; ATTEND Specialist
PROC: 0J950ZZ Drainage of Left Neck Subcutaneous Tissue and Fascia, Open Approach (ICD-10-PCS; 2019-04-15)
PROC: 5A1935Z Respiratory Ventilation, Less than 24 Consecutive Hours (ICD-10-PCS; 2019-04-15)
PROC: 0J910ZZ Drainage of Face Subcutaneous Tissue and Fascia, Open Approach (ICD-10-PCS; principal; 2019-04-15 21:00)
DX: A41.9 Sepsis, unspecified organism (principal); J96.90 Respiratory failure, unspecified, unspecified whether with hypoxia or hypercapnia; K12.2 Cellulitis and abscess of mouth; L03.211 Cellulitis of face; K04.7 Periapical abscess without sinus; K04.1 Necrosis of pulp; K08.499 Partial loss of teeth due to other specified cause, unspecified class; I10 Essential (primary) hypertension; R73.9 Hyperglycemia, unspecified; T38.0X5A Adverse effect of glucocorticoids and synthetic analogues, initial encounter; Y92.230 Patient room in hospital as the place of occurrence of the external cause; Z78.1 Physical restraint status; Z79.899 Other long term (current) drug therapy; Z87.76 Personal history of (corrected) congenital malformations of integument, limbs and musculoskeletal system
CPT/HCPCS: 36415; 70491; 80048; 80053; 82803; 83605; 83690; 83735; 84100; 85025; 85610; 87040; 87150; 94002; 94003; 96361; 96365; 96366; 96375; 99285; A9270; J1170; J1650; J3370; J7120; Q9967; 71045; 87205

== ENCOUNTER 2022-09-01 06:20 | Day surgery (SDC) | payer OTHER ==
[2022-09-01] MEDS ORDERED: LACTATED RINGERS 1,000 ML IV ONE (06:26)
--- NOTE | 2022-09-01 07:09 | ANESTHESIA ---
Pre-Anesthesia VS, & Labs - Diagnosis screening exam - Procedure colonoscopy Vital Signs: Temp Pulse Resp BP Pulse Ox O2 Flow Rate 36.2 C L 102 H 16 125/86 H 97 09/01/22 06:26 09/01/22 06:26 09/01/22 06:26 09/01/22 06:26 09/01/22 06:26 Height: 5 ft 8 in Weight (kg): 98.1 kg Body Mass Index: 32.8 BMI Classification: Obese - NPO >8 hours Home Medications and Allergies Home Medications: Ambulatory Orders Multivitamin 1 each PO DAILY 08/31/22 lisinopriL [Lisinopril] 10 mg PO DAILY 04/15/19 Multivitamin 1 each PO DAILY 08/31/22 Allergies/Adverse Reactions: Allergies Allergy/AdvReac Type Severity Reaction Status Date / Time levofloxacin Allergy Itching Verified 04/15/19 15:52 Anes History & Medical History - Anesthetic History Anesthesia Complications: reports: No previous complications - Medical History Cardiovascular: reports: Hypertension Pulmonary: reports: None Gastrointestinal: reports: None Urinary: reports: Kidney stones Neuro: reports: Other (cranial stenosis) Musculoskeletal: reports: None Endocrine/Autoimmune: reports: None Blood Disorders: reports: None Skin: reports: None Smoking Status: Never smoker Psychosocial: reports: No issues indicated History of Cancer?: No - Surgical History Eyes Ears Nose Throat (EENT): reports: Other Urologic: reports: Ureterolithotomy (stones) Neurologic: reports: Craniotomy Exam General: Alert, Oriented x3, Cooperative, No acute distress Dental: WNL Mouth Openin Fingerbreadth Neck Mobility: Normal Mallampati classification: II Thyromental Distance: 4-6 cm Mental/Cognitive Status: Alert/Oriented X3, Normal for patient Plan Anesthesia Type: General, Total IV Consent for Procedure(s) Verified and Reviewed: Yes Code Status: Attempt Resuscitation ASA classification: 2-Mild systemic disease Is this case an emergency?: No
[2022-09-01] MEDS ORDERED: MIDAZOLAM 2 MG/2 ML VIAL ONE (07:19)
[2022-09-01] MEDS ORDERED: PROPOFOL 500 MG/50 ML 500 MG/50 ML VIAL ONE (07:19)
[2022-09-01] MEDS ORDERED: fentaNYL 100 MCG/2 ML VIAL ONE (07:46)
[2022-09-01] MEDS ORDERED: LACTATED RINGERS 300 ML IV ONE (08:11)
--- NOTE | 2022-09-01 08:31 | ANESTHESIA POST OP EVALUATION ---
Anesthesia Post Eval - Post Anesthesia Eval Vitals: Last Vital Signs Temp 36.1 C L 09/01/22 08:11 Pulse 103 H 09/01/22 08:11 Resp 16 09/01/22 08:11 BP 110/50 L 09/01/22 08:11 Pulse Ox 97 09/01/22 08:11 O2 Flow Rate CV Function Including HR & BP: Stable Pain Control: Satisfactory Nausea & Vomiting: Negative Mental Status: Baseline Respiratory Status: Airway Patent Hydration Status: Satisfactory Anesthesia Complications: None
[2022-09-01 08:34] VITALS: BP 115/77
== END 2022-09-01 06:21 | disposition home or self-care (01) ==
LOC: SDS 06:20
PROVIDERS: ATTEND Surgery
DX: Z12.11 Encounter for screening for malignant neoplasm of colon (principal); K64.4 Residual hemorrhoidal skin tags; E66.9 Obesity, unspecified; Z68.32 Body mass index [BMI] 32.0-32.9, adult; Z92.83 Personal history of failed moderate sedation; G47.30 Sleep apnea, unspecified
CPT/HCPCS: 45378; J7120

== ENCOUNTER 2022-09-08 15:22 | Outpatient (CLI) | payer OTHER ==
--- NOTE | 2022-09-08 15:28 | XRAY Report ---
PROCEDURE: Chest 2 View X-Ray INDICATIONS: ACUTE COUGH TECHNIQUE: 2 views of the chest were acquired. COMPARISON: 04/16/2019 FINDINGS: Surgical changes and devices: None. Lungs and pleura: No pleural effusions or pneumothorax. Lungs are clear. Mediastinum: Mediastinal contours are normal. Heart size is normal. Bones and chest wall: No suspicious bony abnormalities. Soft tissues appear unremarkable. IMPRESSION: No evidence acute pulmonary process. Reviewed by: Simon Schilling MD on 09/08/2022 3:27 PM PST Approved by: Simon Schilling MD on 09/08/2022 3:27 PM PST Station ID: [id number]
== END 2022-09-08 15:23 | disposition home or self-care (01) ==
LOC: DI.S 15:22
PROVIDERS: ATTEND Registered Nurse
DX: R05.1 Acute cough (principal)

== ENCOUNTER 2023-05-15 19:09 | Outpatient (CLI) | payer OTHER ==
--- NOTE | 2023-05-16 09:47 | XRAY Report ---
PROCEDURE: Humerus RT INDICATIONS: CONTUSION OF RIGHT UPPER ARM TECHNIQUE: 2 views of the humerus were acquired. COMPARISON: None. FINDINGS: Bones: No fractures or dislocations. No suspicious bony lesions. Mild acromioclavicular and gleno humeral joint space narrowing with mild particular osteophyte formation. Soft tissues: No suspicious soft tissue calcifications or masses. Calcification along the superior lateral margin of the humeral head soft tissues. IMPRESSION: 1. No fracture or dislocation. 2. Mild acromioclavicular and glenohumeral joint degeneration. 3. Rotator cuff calcific tendinitis versus calcific bursitis. Reviewed by: JEOVANNY Valdes on 05/16/2023 9:46 AM PDT Approved by: Bakari Hernadez MD on 05/16/2023 9:46 AM PDT Station ID: [id number]
== END 2023-05-15 23:59 | disposition home or self-care (01) ==
LOC: DI.S 19:09
PROVIDERS: ATTEND Physician Assistant
DX: S40.021A Contusion of right upper arm, initial encounter (principal); M19.011 Primary osteoarthritis, right shoulder; R93.6 Abnormal findings on diagnostic imaging of limbs

== ENCOUNTER 2023-05-28 07:48 | Outpatient (CLI) | payer OTHER ==
[2023-05-28 14:49] LABS: BASOPHILS % (AUTO) 0.6 %; EOSINOPHILS # (AUTO) 0.1 10^3/uL (0.0-0.7); EOSINOPHILS % (AUTO) 1.3 %; HCT - HEMATOCRIT 44.4 % (42.0-52.0); HGB - HEMOGLOBIN 14.6 g/dL (14.0-18.0); LYMPHOCYTES # (AUTO) 0.8 10^3/uL (1.5-3.5); LYMPHOCYTES % (AUTO) 11.8 %; MEAN CORPUSCULAR HEMOGLOBIN 30.4 pg (27.0-31.0); MEAN CORPUSCULAR HGB CONC 32.9 g/dL (32.0-36.0); MEAN CORPUSCULAR VOLUME 92.5 fL (80.0-94.0); MEAN PLATELET VOLUME 10.1 fL (7.4-11.4); MONOCYTES # (AUTO) 0.5 10^3/uL (0.0-1.0); MONOCYTES % (AUTO) 7.6 %; NEUTROPHILS # (AUTO) 5.6 10^3/uL (1.5-6.6); NEUTROPHILS % (AUTO) 78.4 %; PLT - PLATELET COUNT 320 10^3/uL (130-450); RED CELL DISTRIBUTION WIDTH 12.2 % (12.0-15.0); WHITE BLOOD COUNT 7.1 x10^3/uL (4.8-10.8)
[2023-05-28 15:52] LABS: ALBUMIN 4.4 g/dL (3.2-5.5); ALBUMIN/GLOBULIN RATIO 1.3 (1.0-2.2); ALKALINE PHOSPHATASE 84 IU/L (42-121); ALT ALANINE AMINOTRANSFERASE 17 IU/L (10-60); AST ASPARTATE AMINOTRANSFERASE 18 IU/L (10-42); BILIRUBIN,TOTAL 0.8 mg/dL (0.2-1.0); BUN - BLOOD UREA NITROGEN 13 mg/dL (6-20); CALCIUM 9.4 mg/dL (8.5-10.3); CARBON DIOXIDE - CO2 29 mmol/L (21-32); CHLORIDE 103 mmol/L (101-111); CHOL/HDL RATIO 4.7 (<5.0); CHOLESTEROL 204 mg/dL; CREATININE 0.7 mg/dL (0.6-1.3); GFR - MDRD 121 (>89); GLUCOSE 107 mg/dL (74-104); HDL CHOLESTEROL 43 mg/dL; LDL CHOLESTEROL,CALCULATED 131 mg/dL; POTASSIUM 4.3 mmol/L (3.5-4.5); SODIUM 138 mmol/L (135-145); TOTAL PROTEIN 7.8 g/dL (6.4-8.9); TRIGLYCERIDES 152 mg/dL (48-352); VLDL CHOLESTEROL 30 mg/dL
== END 2023-05-28 07:49 | disposition home or self-care (01) ==
LOC: LAB.S 07:48
PROVIDERS: ATTEND Registered Nurse
DX: I10 Essential (primary) hypertension (principal); E78.5 Hyperlipidemia, unspecified
CPT/HCPCS: 36415; 80053; 80061; 83721; 85025